=== PATIENT | male | born 1960 | race Caucasian/White ===

== ENCOUNTER 2016-09-28 22:21 | Emergency (ER) | payer OTHER ==
[~2016-09-28 22:21] MED LIST: ALDACTONE25 MG PO
[2016-09-29 02:20] LABS: HEMOGLOBIN 14.3 gm/dl (14.0-17.5); RED BLOOD COUNT 4.81 M/UL (4.20-5.50)
[2016-09-29 02:38] LABS: BUN/CREATININE RATIO 13 (0-10)
== END 2016-09-29 03:30 | disposition home or self-care (01) ==
LOC: ER1 22:21
PROVIDERS: Student in an Organized Health Care Education/Training Program
DX: K85.00 Idiopathic acute pancreatitis without necrosis or infection (principal); E11.9 Type 2 diabetes mellitus without complications; I10 Essential (primary) hypertension; F41.9 Anxiety disorder, unspecified; E78.5 Hyperlipidemia, unspecified; F17.210 Nicotine dependence, cigarettes, uncomplicated; Z90.49 Acquired absence of other specified parts of digestive tract; Z79.84 Long term (current) use of oral hypoglycemic drugs; Z79.899 Other long term (current) drug therapy
CPT/HCPCS: 36415; 80053; 81001; 83690; 85025; 87086; 96374; 96375; 99284; J2270; J2405

== ENCOUNTER 2020-04-29 12:04 | Observation (INO) | payer OTHER ==
[~2020-04-29] VITALS: Ht 172.7 cm; Wt 68.5 kg
[~2020-04-29 12:04] MED LIST changes: +ATORVASTATIN CA40 MG PO; +BENICAR20 MG PO; +BUTALB-ACETAMI1 EAC1 PO; +CATAPRES 0.1MG0.1 MG PO; +DEPAKOTE ER500 MG PO; +FISH OIL 1,0001 EACH PO; +GLUCOPHAGE500 MG PO; +HYDRALAZINE HC100 MG PO; +NEURONTIN600 MG PO; +NORCO 10-325 T1 EACH PO; +NORFLEX 100 MG100 MG PO; +TOPROL XL100 MG PO; +Voltaren Gel 1 % TOP
[2020-04-29 17:51] LABS: HEMOGLOBIN 13.1 gm/dl (14.0-17.5); RED BLOOD COUNT 4.81 M/UL (4.20-5.50); WHITE BLOOD COUNT 8.6 K/UL (4.5-11.0)
[2020-04-29 18:07] LABS: BUN/CREATININE RATIO 11 (0-10)
[2020-04-29] MEDS ORDERED: BUSPAR 10MG10 MG PO (20:47)
[2020-04-29] MEDS ORDERED: VITAMIN D21250 MCG PO (20:48)
[2020-04-30 04:40] LABS: HEMOGLOBIN 12.8 gm/dl (14.0-17.5); RED BLOOD COUNT 4.68 M/UL (4.20-5.50); WHITE BLOOD COUNT 6.9 K/UL (4.5-11.0)
[2020-04-30 05:24] LABS: BUN/CREATININE RATIO 9 (0-10)
== END 2020-04-30 14:47 | disposition home or self-care (01) ==
LOC: ER1 12:04 → MED SURG 4 18:35 → CDU 18:35 → MED SURG 4 22:18
PROVIDERS: Emergency Medicine; Physician Assistant; ADMIT Family Medicine
DX: K85.90 Acute pancreatitis without necrosis or infection, unspecified (principal); E11.9 Type 2 diabetes mellitus without complications; I10 Essential (primary) hypertension; I71.4 Abdominal aortic aneurysm, without rupture; F17.210 Nicotine dependence, cigarettes, uncomplicated; K74.60 Unspecified cirrhosis of liver; Z90.49 Acquired absence of other specified parts of digestive tract; Z79.899 Other long term (current) drug therapy; K59.00 Constipation, unspecified
CPT/HCPCS: 36415; 80053; 80061; 82962; 83690; 85025; 96372; 96374; 96375; 96376; 99285; G0378; J2270; J2405

== ENCOUNTER 2020-05-03 01:26 | Emergency (ER) | payer OTHER ==
[~2020-05-03 01:26] MED LIST changes: +BUSPAR 10MG10 MG PO; +VITAMIN D21250 MCG PO
[2020-05-03 02:58] LABS: HEMOGLOBIN 11.7 gm/dl (14.0-17.5); RED BLOOD COUNT 4.27 M/UL (4.20-5.50); WHITE BLOOD COUNT 8.5 K/UL (4.5-11.0)
[2020-05-03 03:21] LABS: BUN/CREATININE RATIO 15 (0-10)
== END 2020-05-03 08:30 | disposition home or self-care (01) ==
LOC: ER1 01:26
PROVIDERS: Physician Assistant
DX: K85.90 Acute pancreatitis without necrosis or infection, unspecified (principal); K86.1 Other chronic pancreatitis; E11.9 Type 2 diabetes mellitus without complications; I10 Essential (primary) hypertension; F17.210 Nicotine dependence, cigarettes, uncomplicated; Z79.84 Long term (current) use of oral hypoglycemic drugs; Z90.49 Acquired absence of other specified parts of digestive tract
CPT/HCPCS: 80053; 81001; 82550; 82553; 83690; 84484; 85025; 93005; J1885; J2405; J7030; Q9967

== ENCOUNTER 2020-05-05 14:31 | Inpatient (IN) | payer OTHER ==
[~2020-05-05] VITALS: Ht 172.7 cm; Wt 72.6 kg
[2020-05-05 15:47] LABS: WHITE BLOOD COUNT 9.4 K/UL (4.5-11.0)
[2020-05-05 15:50] LABS: HEMOGLOBIN 14.2 gm/dl (14.0-17.5); RED BLOOD COUNT 5.05 M/UL (4.20-5.50)
[2020-05-05 16:11] LABS: BUN/CREATININE RATIO 12 (0-10)
[2020-05-06 04:29] LABS: HEMOGLOBIN 11.9 gm/dl (14.0-17.5); RED BLOOD COUNT 4.39 M/UL (4.20-5.50); WHITE BLOOD COUNT 6.3 K/UL (4.5-11.0)
[2020-05-06 04:58] LABS: BUN/CREATININE RATIO 14 (0-10)
--- NOTE | 2020-05-06 19:24 | NUR ---
PATIENTS BLOOD PRESSURE WAS 191/101 AT 19:20 ADMINISTERED PERSCRIBED HYDRALAZINE. WILL CONTINUE TO MONITOR.
[2020-05-07 03:38] LABS: HEMOGLOBIN 12.4 gm/dl (14.0-17.5); RED BLOOD COUNT 4.52 M/UL (4.20-5.50); WHITE BLOOD COUNT 6.2 K/UL (4.5-11.0)
--- NOTE | 2020-05-07 03:48 | NUR ---
PATIENTS BLOOD PRESSURE WAS 171/89 HE HAD PO HYDRALAZINE SCHEDULED. WHEN RECHECKED PATIETNTS BP WAS 164/75. PER PROVIDER ORDER ON EMAR, IV HYDRALOZINE WAS ADMINISTERED. WILL CONTINUE TO MONITOR.
[2020-05-07 03:58] LABS: BUN/CREATININE RATIO 13 (0-10)
[2020-05-08 03:33] LABS: BUN/CREATININE RATIO 13 (0-10)
[2020-05-08] MEDS ORDERED: CATAPRES 0.1MG0.1 MG PO (09:39)
[2020-05-08] MEDS ORDERED: AMLODIPINE BESYL5 MG PO (09:39)
== END 2020-05-08 13:17 | disposition home or self-care (01) | DRG 439 ==
LOC: ER1 14:31 → ZEROF 17:53 → MED SURG 4 05-06 08:01
PROVIDERS: Physician Assistant Medical; Preventive Medicine Occupational Medicine; ADMIT Internal Medicine
DX: K85.90 Acute pancreatitis without necrosis or infection, unspecified (principal); K86.3 Pseudocyst of pancreas; K86.1 Other chronic pancreatitis; I16.0 Hypertensive urgency; E78.5 Hyperlipidemia, unspecified; E87.6 Hypokalemia; Z20.822 Contact with and (suspected) exposure to COVID-19; E11.9 Type 2 diabetes mellitus without complications; K57.90 Diverticulosis of intestine, part unspecified, without perforation or abscess without bleeding; I71.4 Abdominal aortic aneurysm, without rupture; F17.210 Nicotine dependence, cigarettes, uncomplicated; Z91.14 Patient's other noncompliance with medication regimen; Z79.899 Other long term (current) drug therapy; Z90.49 Acquired absence of other specified parts of digestive tract
CPT/HCPCS: 36415; 80048; 80053; 81001; 82150; 82550; 82553; 82962; 83690; 83735; 84484; 85025; 85027; 85652; 86140; 87086; 93005; 96372; 96374; 96375; 96376; 99284; 99285; J0360; J1170; J1650; J1885; J2270; J2405; J7030; Q9967; U0002

== ENCOUNTER → 2020-11-03 | Outpatient (CLI) | payer OTHER ==
[~2020-11-03] MED LIST changes: +AMLODIPINE BESYL5 MG PO
== END ==
LOC: EXRD 09:52
DX: R63.4 Abnormal weight loss (principal)
CPT/HCPCS: 76700

== ENCOUNTER → 2020-12-15 | Outpatient (CLI) | payer OTHER | LOC: MRI 12-10 10:00 | DX: K83.8 Other specified diseases of biliary tract (principal); K86.89 Other specified diseases of pancreas; Z90.49 Acquired absence of other specified parts of digestive tract | CPT/HCPCS: 36415; 74183; 82565; 84520; A9577 ==

== ENCOUNTER → 2021-05-18 | Outpatient (CLI) | payer OTHER | LOC: MRI 12:14 | DX: D49.0 Neoplasm of unspecified behavior of digestive system (principal); K86.1 Other chronic pancreatitis | CPT/HCPCS: 74181 ==

== ENCOUNTER → 2021-12-21 | Outpatient (CLI) | payer OTHER | LOC: KOH-I 12-04 11:00 | DX: E11.9 Type 2 diabetes mellitus without complications (principal); E78.5 Hyperlipidemia, unspecified; E88.01 Alpha-1-antitrypsin deficiency; K14.9 Disease of tongue, unspecified; I10 Essential (primary) hypertension; F17.290 Nicotine dependence, other tobacco product, uncomplicated; F41.9 Anxiety disorder, unspecified; R79.89 Other specified abnormal findings of blood chemistry | CPT/HCPCS: 76775 ==